=== PATIENT | male | born 2000 | race Two or more races ===

== ENCOUNTER 2024-12-16 18:35 | Emergency (ER) | payer MEDICAID, SELFPAY ==
[2024-12-16 19:13] VITALS: BP 125/81; PULSE 99; RESP 18; TEMP 36.9; O2SAT 99
--- NOTE | 2024-12-16 19:37 | XR_ITS ---
Examination: CT abdomen with intravenous contrast CT pelvis with intravenous contrast 2-D coronal reconstructions 2-D sagittal reconstructions Date and time of exam:December 16, 2024 2050 hours INDICATIONS: Sudden onset right lower abdominal pain and fever beginning 2 days ago. CTDI: vol (mGy) 4.97 DLP: (mGycm) 292 Technique: Multiple axial sections of the abdomen and pelvis have been obtained. 64 slice high-resolution scanner used. 3 mm axial sections have been obtained, post intravenous injection 60 cc [id number] 2-D sagittal, coronal reconstructions obtained. Low dose protocols were performed. One or more of the following dose reduction techniques were used; automated exposure control, adjustment of the mA and/or KV according to patient size, use of iterative reconstruction technique. Findings: No focal liver or splenic lesions No gallstones No pancreatic mass No renal or ureteral calculi, no hydronephrosis Aorta normal size No bowel obstruction. Normal appendix, coronal image 42 through 56 No pericecal inflammatory change No bowel obstruction Urinary bladder is intact Abnormally enlarged lymph nodes in the right groin, the largest 3 mm Osseous structures are intact IMPRESSION: Normal appendix Abnormally enlarged lymph nodes in the right groin, differential would include reactive lymphadenopathy secondary to infection, lymphoma, Hodgkin's disease not excluded Clinical correlation advised and follow-up imaging recommended
--- NOTE | 2024-12-16 19:39 | EDRME_ITS ---
Rapid Medical Screening Exam [facility] Arrival date/time: 12/16/24 18:35 24-year-old male presents emergency department complaining of right lower quadrant abdominal pain with fever and cough that is been ongoing for 2 days. Chief Complaint: Abdominal Pain Time Seen by Provider: 12/16/24 18:48 Vital signs: Vital Signs Temperature 98.5 F 12/16/24 19:13 Pulse Rate 99 12/16/24 19:13 Respiratory Rate 18 12/16/24 19:13 Blood Pressure 125/81 12/16/24 19:13 Pulse Oximetry (%) 99 12/16/24 19:13 Oxygen Delivery Method Room Air 12/16/24 19:13 Vital signs reviewed by provider: Yes
[2024-12-16 19:56] LABS: Collection Type, Urine Clean Catch; Squamous Epithelial Cell,Urine 0 /hpf (0-5)
[2024-12-16 20:03] LABS: Basophils # (Auto) 0.1 Thou/mm3 (0.0-0.2); Basophils % (Auto) 1 % (0-2.5); Eosinophils # (Auto) 0.2 Thou/mm3 (0.0-0.5); Eosinophils % (Auto) 2 % (0-10); Hematocrit 41.4 % (41.0-53.0); Hemoglobin 13.7 g/dL (13.5-16.0); Immature Granulocytes % (Auto) 0 % (0-0); Immature Granulocytes Auto 0.04 Thou/mm3 (0.00-0.00); Lymphocytes % (Auto) 17 % (10-50); Mean Corpuscular HGB Conc 33.1 g/dl (31.0-37.0); Mean Corpuscular Hemoglobin 28.5 pg (25.0-35.0); Mean Corpuscular Volume 86 fL (80-100); Monocytes % (Auto) 8 % (0-12); Neutrophils # (Auto) 8.6 Thou/mm3 (1.8-7.7); Neutrophils % (Auto) 72 % (37-80); Nucleated Red Blood Cell % 0 /100 WBC (0); Platelet Count 453 Thou/mm3 (140-440); RDW Standard Deviation 42.4 fL (35.1-43.9); White Blood Count 11.9 Thou/mm3 (3.8-10.6)
[2024-12-16] MEDS: KETOROLAC INJ 60 MG/2 ML VIAL 30 MG IM (20:05)
[2024-12-16 20:09] LABS: Bilirubin,Urine Negative (Negative); Blood,Urine Trace (Negative); Clarity,Urine Clear (Clear/Hazy); Color,Urine Yellow (Lt Yel-Yel); Culture Indicated,Urine Not Indicated; Glucose, Urine Negative (Negative); Ketones,Urine Negative (Negative); Leukocyte Esterase,Urine Positive (Negative); Nitrite,Urine Negative (Negative); Protein,Urine Trace (Neg - Trace); RBC,Urine 1 /hpf (0-3); Specific Gravity,Urine 1.021 (1.001-1.035); WBC,Urine 8 /hpf (0-5)
[2024-12-16 20:19] LABS: Alanine Aminotransferase 9 U/L (10-49); Albumin, Serum 4.8 gm/dL (3.5-5.0); Albumin/Globulin Ratio 1.5 (1.2-2.2); Alkaline Phosphatase 89 U/L (46-116); Anion Gap 8 (7-16); Aspartate Amino Transferase 17 U/L (0-34); BUN/Creatinine Ratio 14 Ratio (12-20); Bilirubin,Total 0.4 mg/dL (0.3-1.2); Blood Urea Nitrogen 13 mg/dL (9-23); Carbon Dioxide 29.1 mMol/L (20.0-31.0); Chloride 100 mMol/L (98-107); Creatinine (Component) 0.9 mg/dL (0.6-1.3); Globulin 3.2 gm/dL (2.3-3.5); Glucose 97 mg/dL (74-106); Osmolality,Calculated 273 (275-295); Potassium 3.8 mMol/L (3.4-5.1); Sodium 137 mMol/L (136-145); eGFR > 60 See Note
[2024-12-16 20:45] LABS: Amphetamine/Methamp Scrn,U Positive (Negative); Barbiturate Screen,Urine Negative (Negative); Benzodiazepines Screen,Urine Negative (Negative); Benzoylecgonine Screen, Ur Negative (Negative); Fentanyl Screen,Urine Negative (Negative); Opiate Screen,Urine Negative (Negative); THC Screen,Urine Positive (Negative)
[2024-12-17 00:31] LABS: Syphilis Reactive (Nonreactive)
[2024-12-17 00:32] LABS: MHATP/TP-PA* See Sep Rpt
--- NOTE | 2024-12-17 00:37 | EDNOTE_ITS ---
ED Abdominal Pain RME/HPI General Chief Complaint: Abdominal Pain Stated complaint: FEVER, RLQ ABD PAIN, COUGH, CONGESTION Time seen by provider: 12/16/24 18:48 Arrival date/time: 12/16/24 18:35 24-year-old male presents emergency department complaining of right lower quadrant abdominal pain with fever and cough that is been ongoing for 2 days. Patient denies any dysuria, genital lesions, several sex partners, or any other associated symptoms. Patient reports sexually active and has 1 sexual partner. Source: patient Mode of arrival: ambulatory Limitations: no limitations RME / HPI RME / HPI narrative: 12/16/24 18:35 24-year-old male presents emergency department complaining of right lower quadrant abdominal pain with fever and cough that is been ongoing for 2 days. Related Data Allergies Allergy/AdvReac Type Severity Reaction Status Date / Time No Known Allergies Allergy Verified 09/23/20 14:06 Review of Systems Review of Systems Systems Reviewed: All systems reviewed, normal except as documented Constitutional Constitutional: Reports system reviewed and no additional complaints, except as documented, Denies body ache(s), Denies chills and Reports fever(s) Eyes Eyes: Reports system reviewed and no additional complaints, except as documented and Denies change in vision ENT Ears, Nose, Mouth, and Throat: Reports system reviewed and no additional complaints, except as documented, Denies disequilibrium, Denies dizziness, Denies sore throat and Denies vertigo Cardiovascular Cardiovascular: Reports system reviewed and no additional complaints, except as documented, Denies chest pain and Denies dyspnea Respiratory Respiratory: Reports system reviewed and no additional complaints, except as documented, Denies chest congestion, Reports cough and Denies dyspnea Gastrointestinal Gastrointestinal: Reports system reviewed and no additional complaints, except as documented, Reports abdominal pain, Denies nausea and Denies vomiting Musculoskeletal Musculoskeletal: Reports system reviewed and no additional complaints, except as documented, Denies abnormal gait and Denies arthralgias Integumentary/Breasts Skin/Breast: Reports system reviewed and no additional complaints, except as documented, Denies erythema, Denies rash and Denies wounds Neurologic Neurologic: Reports system reviewed and no additional complaints, except as documented, Denies abnormal gait, Denies disequilibrium, Denies dizziness and Denies vertigo Past Medical History Past Medical History NEUROLOGIC: Negative Seizures CARDIAC: Negative Cardiac Disorders or Congestive Heart Failure RESPIRATORY: Negative Chronic Obstructive Pulmonary Disease (COPD) or Asthma GENITOURINARY: Negative Renal Disease ENDOCRINE: Negative Diabetes Mellitus Type 1 or Diabetes Mellitus Type 2 HEMATOLOGIC: Negative Sickle Cell Disease OTHER HISTORY: Negative Blood Transfusions, Blood Transfusion Reaction or Anesthesia Reactions Social History SMOKING STATUS: Heavy (> 1 pack/day) SUBSTANCE USE: does not use ED Exam General Limitations: Present no limitations General appearance: Present alert and in no apparent distress Head Head exam: Present atraumatic Eye Eye exam: Present normal appearance, PERRL and EOMI ENT ENT exam: Present normal exam, normal oropharynx and mucous membranes moist Neck Neck exam: Present normal inspection, full ROM and trachea midline Chest Chest inspection: Present normal inspection and symmetric chest wall rise Respiratory Respiratory exam: Present normal lung sounds bilaterally Cardiovascular Cardiovascular exam: Present regular rate, normal rhythm and normal heart sounds Abdominal Exam Abdominal exam: Present soft and normal bowel sounds Extremities Exam Extremities exam: Present normal inspection and full ROM Back Exam Back exam: Present normal inspection and full ROM Neurological Exam Neurological exam: Present alert, oriented X3 and CN II-XII intact Psychiatric Psychiatric exam: Present normal affect and normal mood Skin Skin exam: Present warm, dry, intact and normal color Expanded Skin Exam Body image: 2 1. +2 lymphedema Course Quality Measures none Orders Category Date Time Status Bedside Influenza A&B Antigen Test NOW Care 12/16/24 19:[address] Screening NOW Care 12/16/24 19:[address] abdomen pelvis w con Stat Exams 12/16/24 19:37 Completed CBC Stat Lab 12/16/24 19:50 Completed CMP [Comprehensive Metabolic Panel] Stat Lab 12/16/24 19:50 Completed Chlamydia/GC/TV - PCR Stat Lab 12/16/24 Ordered Drug Screen,Urine Stat Lab 12/16/24 19:43 Completed MHATP/TP-PA* Stat Lab 12/16/24 19:50 Received Syphilis Stat Lab 12/16/24 19:50 Completed Urinalysis, C/S if Indicated Stat Lab 12/16/24 19:43 Completed Ketorolac Inj [Toradol Inj] Med 12/16/24 19:39 Discontinued 30 mg IM X1 ONE PEN G ELIECER (Bicillin LA) [Bicillin La Inj] Med 12/17/24 00:32 Discontinued 2.4 mmu IM X1 ONE Vital Signs Vital signs: Vital Signs Temperature 98.5 F 12/16/24 19:13 Pulse Rate 99 12/16/24 19:13 Respiratory Rate 18 12/16/24 19:13 Blood Pressure 125/81 12/16/24 19:13 Pulse Oximetry (%) 99 12/16/24 19:13 Oxygen Delivery Method Room Air 12/16/24 19:13 99% room air within normal limits Abdominal Pain MDM MDM Narrative MDM Narrative:: 24-year-old male presents emergency department complaining of right lower quadrant abdominal pain with fever and cough that is been ongoing for 2 days. Patient denies any dysuria, genital lesions, several sex partners, or any other associated symptoms. Patient reports sexually active and has 1 sexual partner. CBC mild leukocytosis 11.9. CMP was unremarkable. Urinalysis was unremarkable for infection. CT abdomen pelvis with con impression: Normal appendix Abnormally enlarged lymph nodes in the right groin, differential would include reactive lymphadenopathy secondary to infection, lymphoma, Hodgkin's disease not excluded Syphilis positive. Patient denies any history of STIs. Patient given penicillin G 2,400,000 units IM and instructed to follow-up with primary care provider in 2 to 3 days for STI panel results and titers. Strict return immediately to emergency department for any worsening symptoms as needed. Patient data External records reviewed:: [facility] previous records Clinical information provided by:: patient Social determinants that could affect healthcare access:: none Patient has the following chronic illnesses:: See chart How is presenting disease/condition affected by chronic disease/condition?: u neffected by Evaluation data The following diagnostics were reviewed and interpreted by me:: lab results and radiology exam(s) Lab and/or radiology exams considered but not ordered:: Ordered Interpretation Summary: Interpreted by me Medications / Prescriptions Medications or Prescriptions considered but not ordered:: Order Medication administrations:: Medication Administration History Discontinued Medications Ketorolac Tromethamine (Ketorolac Inj 60 Mg/2 Ml Vial) 30 mg IM X1 ONE Stop: 12/16/24 19:40 Last Admin: 12/16/24 20:05 Dose: 30 mg Documented By: BHUPENDRA Penicillin G Benzathine (Pen G Eliecer (Bicillin La) 1.2 Mmu/2 Ml Syrg) 2.4 mmu IM X1 ONE Stop: 12/17/24 00:33 Given Consultations Consultation(s) initiated? (list below): No Diagnosis Differential diagnosis abdominal pain: abdominal pain, acute appendicitis, constipation, diverticulitis, gastroenteritis, pancreatitis and small bowel obstruction Most likely diagnosis given after review of the tests above:: Syphilis Admission Indicated Admission indicated?: not indicated Admission Request Was there a request for admission?: No Disposition Plan Disposition Plan: Discharge Discharge Attestation Discharge Attestation: The patient and all family members were given an opportunity to ask questions and understood the discharge instructions. Discharge instructions specifically effects, indications for sooner follow up or return to the emergency department, and the expected course of current diagnosis. Patient condition: Stable Discharge Plan Plan Patient Disposition: HOME (Self Care) Disposition Comment: Stable Prescriptions/Referrals Referrals: No Primary/Family,Physician [Primary Care Provider] - In 1 week Problem List Clinical Impression: Syphilis Patient/Caregiver Discharge Instructions Discharge Activity: activity as tolerated Education Materials: Syphilis Additional Instructions: Drink plenty of fluids. Follow-up with primary care provider 2 to 3 days for results of STI panel Abstain from sexual activity for 7 days until treatment completed. You were given antibiotic and you might develop fevers myalgias or rigors within the first 24 hours of treatment. Return to emergency department for any worsening symptoms or as needed. Print Language: Macedonian Stand Alone Forms: Jody Award Info., Patient Portal Info Letter PA/VALIDATION SPECIALIST Supervising Physician FINN/NING Supervising Physician: Dr. Blanton
[2024-12-17] MEDS: PEN G BENZ (Bicillin LA) 1.2 MMU/2 ML SYRG 2.4 MMU IM (00:40)
== END 2024-12-17 00:52 | disposition home or self-care (01) ==
PROVIDERS: Emergency Provider Emergency Medicine
DX: A53.9 Syphilis, unspecified (principal); R59.0 Localized enlarged lymph nodes
CPT/HCPCS: 36415; 74177; 80053; 80307; 81001; 85025; 86780; 87400; 87491; 87591; 87661; 96372; 99285; A4649; J0561; J1885; Q9967